=== PATIENT | female | born 1990 | race Caucasian/White ===

== ENCOUNTER 2016-11-11 00:33 | Emergency (ER) | payer OTHER ==
[~2016-11-11] VITALS: Ht 165.1 cm; Wt 86.2 kg
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
[~2016-11-11 00:33] MED LIST: FLEXERIL10 MG PO; FLOMAX0.4 M1 PO; KEFLEX500 MG PO; LORTAB 5/500 TA1 TA1 PO; NAPROSYN500 MG PO; NO MEDICATIONS; TYLOX 5-500 CA1 EACH PO; ULTRAM PO; VICODIN 5/1 TAB 5/50; VICODIN 5/1 TAB 5/50 PO; ZITHROMAX PO
[2016-11-11] MEDS ORDERED: BIRTH CONTROL PILL PO (00:53)
== END 2016-11-11 01:32 | disposition home or self-care (01) ==
LOC: SED 00:33
DX: S63.92XA Sprain of unspecified part of left wrist and hand, initial encounter (principal); Z88.0 Allergy status to penicillin; V49.60XA Unspecified car occupant injured in collision with unspecified motor vehicles in traffic accident, initial encounter; W22.10XA Striking against or struck by unspecified automobile airbag, initial encounter; Y93.89 Activity, other specified; Y92.410 Unspecified street and highway as the place of occurrence of the external cause
CPT/HCPCS: 29280; 73130; 99283